=== PATIENT | female | born 1990 | race Caucasian/White ===

== ENCOUNTER → 2023-06-17 15:43 | Outpatient (CLI) | payer BC, SELFPAY ==
--- NOTE | ~2023-06-17 | US_ITS ---
EXAMINATION: US abdomen complete DATE: 06/17/2023 16:10 INDICATION: Gastroesophageal reflux disease without esophagitis. TECHNIQUE: Multiple grayscale and Doppler ultrasound images of the abdomen were obtained. COMPARISON: None FINDINGS: The visualized portions of the head and body of the pancreas are normal. The liver is xiao l without focal lesion. There is normal flow in main portal vein. The gallbladder is normal in size a nd contains a gallstone. No gallbladder wall thickening or sonographic Celis sign. The common duct i s normal and measures 4 mm. The kidneys are normal in size. The spleen is normal in size. Inferior ve na cava is normal. Abdominal aorta is normal in caliber. IMPRESSION: 1. Cholelithiasis. Reviewed, dictated and finalized at location E. [facility] IMPRESSION: 1. Cholelithiasis.
== END ==
PROVIDERS: PCP Internal Medicine; Visit Provider Internal Medicine
DX: K21.9 Gastro-esophageal reflux disease without esophagitis (principal); R10.11 Right upper quadrant pain; K80.20 Calculus of gallbladder without cholecystitis without obstruction
CPT/HCPCS: 76700

== ENCOUNTER 2024-10-15 11:28 | Outpatient (CLI) | payer BC, SELFPAY ==
--- NOTE | ~2024-10-15 | XR_ITS ---
EXAM/ PROCEDURE: XR wrist LT 2V - 10/15/2024 11:36 CDT HISTORY: 34 years old Female with Multiple joint pain COMPARISON: None available TECHNIQUE: Two view(s) FINDINGS/ IMPRESSION: There are no fractures or dislocations.Joint spaces are within normal limits Reviewed, dictated and finalized at location A.
--- NOTE | ~2024-10-15 | XR_ITS ---
EXAM/ PROCEDURE: XR wrist RT 2V - 10/15/2024 11:36 CDT HISTORY: 34 years old Female with Multiple joint pain COMPARISON: None available TECHNIQUE: Two view(s) FINDINGS/ IMPRESSION: There are no fractures or dislocations.Joint spaces are within normal limits Reviewed, dictated and finalized at location A.
--- NOTE | ~2024-10-15 | XR_ITS ---
EXAM/ PROCEDURE: XR foot RT 2V - 10/15/2024 11:36 CDT HISTORY: 34 years old Female with Multiple joint pain COMPARISON: None available TECHNIQUE: Two view(s) FINDINGS/ IMPRESSION: There are no fractures or dislocations.Joint spaces are within normal limits Reviewed, dictated and finalized at location A.
--- NOTE | ~2024-10-15 | XR_ITS ---
EXAM/ PROCEDURE: XR hand LT 2V - 10/15/2024 11:36 CDT HISTORY: 34 years old Female with Multiple joint pain COMPARISON: None available TECHNIQUE: Two view(s) FINDINGS/ IMPRESSION: There are no fractures or dislocations.Joint spaces are within normal limits Reviewed, dictated and finalized at location A.
--- NOTE | ~2024-10-15 | XR_ITS ---
EXAM/ PROCEDURE: XR ankle LT 2V - 10/15/2024 11:36 CDT HISTORY: 34 years old Female with Multiple joint pain COMPARISON: None available TECHNIQUE: Two view(s) FINDINGS/ IMPRESSION: There are no fractures or dislocations.Joint spaces are within normal limits Reviewed, dictated and finalized at location A.
--- NOTE | ~2024-10-15 | XR_ITS ---
EXAM/ PROCEDURE: XR sacroiliac joints min 3V - 10/15/2024 11:36 CDT HISTORY: 34 years old Female with Multiple joint pain COMPARISON: None available TECHNIQUE: Three view(s) FINDINGS/ IMPRESSION: There are no fractures or dislocations.Joint spaces are within normal limits Reviewed, dictated and finalized at location A.
--- NOTE | ~2024-10-15 | XR_ITS ---
EXAM/ PROCEDURE: XR foot LT 2V - 10/15/2024 11:36 CDT HISTORY: 34 years old Female with Multiple joint pain COMPARISON: None available TECHNIQUE: Two view(s) FINDINGS/ IMPRESSION: There are no fractures or dislocations.Joint spaces are within normal limits Reviewed, dictated and finalized at location A.
--- NOTE | ~2024-10-15 | XR_ITS ---
EXAM/ PROCEDURE: XR ankle RT 2V - 10/15/2024 11:36 CDT HISTORY: 34 years old Female with Multiple joint pain COMPARISON: None available TECHNIQUE: Two view(s) FINDINGS/ IMPRESSION: There are no fractures or dislocations.Joint spaces are within normal limits Reviewed, dictated and finalized at location A.
--- NOTE | ~2024-10-15 | XR_ITS ---
EXAM/ PROCEDURE: XR hand RT 2V - 10/15/2024 11:36 CDT HISTORY: 34 years old Female with Multiple joint pain COMPARISON: None available TECHNIQUE: Two view(s) FINDINGS/ IMPRESSION: There are no fractures or dislocations.Joint spaces are within normal limits Reviewed, dictated and finalized at location A.
== END 2024-10-15 11:29 | disposition home or self-care (01) ==
LOC: MICIMG 11:30
PROVIDERS: PCP Internal Medicine; Visit Provider Internal Medicine
DX: M25.50 Pain in unspecified joint (principal); M79.10 Myalgia, unspecified site; R53.81 Other malaise
CPT/HCPCS: 72202; 73100; 73120; 73600; 73620